=== PATIENT | male | born 1975 | race Caucasian/White ===

== ENCOUNTER 2016-07-11 08:12 | Day surgery (SDC) | payer OTHER ==
[~2016-07-11 08:12] MED LIST: Kenalog-40 IM ONE; Ketamine HCl 50 MG/ML IV ONE; Sensorcaine 0.25% 10 ML IJ ONE
[2016-07-11] MEDS ORDERED: Lactated Ringers 1,000 ML IV SCH (08:30)
[2016-07-11 08:54] VITALS: BP 145/93; PULSE 67; O2SAT 99
[2016-07-11] MEDS ORDERED: DIPRIVAN 200 MG/20 ML IV ONE (11:00)
--- NOTE | 2016-07-11 12:25 | XRAY ---
Indication: Right knee injection. Intraoperative fluoroscopy was provided for 25 seconds. A single digital spot lateral knee submitted for interpretation demonstrates what appears to be 3 anterior needle tips, 2 projecting over the distal femur shaft and the third anteriorly. Correlate with intraoperative findings/report.
--- NOTE | 2016-07-12 11:00 | XRAY ---
25 seconds fluoroscopy time in surgery for right knee injection.
== END 2016-07-11 11:10 | disposition home or self-care (01) ==
LOC: SDC-PAIN 08:12
PROVIDERS: ATTEND Pain Medicine Interventional Pain Medicine
DX: M25.561 Pain in right knee (principal); M25.562 Pain in left knee; M47.816 Spondylosis without myelopathy or radiculopathy, lumbar region
CPT/HCPCS: 64450; 73560; 76000; J2704; J3301

== ENCOUNTER 2016-09-05 08:20 | Day surgery (SDC) | payer OTHER ==
[2016-09-05] MEDS ORDERED: DIPRIVAN 200 MG/20 ML IV ONE (10:00)
--- NOTE | 2016-09-05 11:31 | XRAY ---
Indication: Right knee GNB. Intraoperative fluoroscopy was provided for 22 seconds. 2 lateral digital spot images submitted for interpretation demonstrates what appears to be 3 anterior needle tips, 2 projecting over the distal femur shaft and the third projecting over the proximal tibia. Correlate with intraoperative findings/report.
--- NOTE | 2016-09-05 13:18 | XRAY ---
22 seconds of fluoroscopy was used in surgery for a right GNB.
[2016-09-05] MEDS ORDERED: Sensorcaine 0.25% 10 ML IJ ONE (15:00)
[2016-09-05] MEDS ORDERED: Lactated Ringers IV ONE (15:00)
[2016-09-05] MEDS ORDERED: Kenalog-40 IM ONE (15:00)
== END 2016-09-05 10:40 | disposition home or self-care (01) ==
LOC: SDC-PAIN 08:20
PROVIDERS: ATTEND Pain Medicine Interventional Pain Medicine
DX: M25.561 Pain in right knee (principal); M25.562 Pain in left knee; M47.816 Spondylosis without myelopathy or radiculopathy, lumbar region; Z79.891 Long term (current) use of opiate analgesic
CPT/HCPCS: 01991; 64640; 73560; 76000; J2704; J3301

== ENCOUNTER 2017-10-02 08:01 | Day surgery (SDC) | payer OTHER ==
[2017-10-02] MEDS ORDERED: LIDOCAINE HCL 2% 100 MG/5 ML IJ ONE (08:02)
[2017-10-02] MEDS ORDERED: XYLOCAINE-MPF 1% 5ML SDV IJ ONE (08:02)
[2017-10-02] MEDS ORDERED: Marcaine 0.5% SDV 10 ML IJ ONE (08:02)
--- NOTE | 2017-10-02 11:07 | XRAY ---
Indication: Right knee GNB. Intraoperative fluoroscopy was provided for 22 seconds. 2 digital spot images submitted for interpretation demonstrates 2 anterior needle tips projecting over the distal medial and lateral femur shaft. Correlate with intraoperative findings/report.
--- NOTE | 2017-10-02 11:11 | XRAY ---
22 seconds fluoroscopy in surgery for incomplete knee injection.
--- NOTE | 2017-10-02 15:01 | OP ---
DATE OF PROCEDURE: 10/02/2017 0908 SURGEON: Jonathan Staley D.O. PREOPERATIVE DIAGNOSES: Degenerative knee disease, knee pain. POSTOPERATIVE DIAGNOSES: Degenerative knee disease, knee pain. PROCEDURE PERFORMED: Right genicular nerve block under fluoroscopic guidance. The patient preferred to have genicular nerve block done under local anesthetic agent. The patient cannot tolerate the procedure under local anesthetic agent after the second needle insertion, and the patient preferred to stop the procedure immediately and to be rescheduled for the right knee genicular nerve block under non-local anesthesia such as MAC in the future. No injection medications were given for the genicular nerve block today. The patient will be rescheduled for right genicular nerve block in the near future. No complications observed after today's procedure.
== END 2017-10-02 09:54 | disposition home or self-care (01) ==
LOC: SDC-PAIN 08:01
PROVIDERS: ATTEND Internal Medicine
DX: M25.561 Pain in right knee (principal); M54.5 Low back pain; Z79.891 Long term (current) use of opiate analgesic
CPT/HCPCS: 64450; 73560; 77003

== ENCOUNTER 2020-02-24 10:56 | Emergency (ER) | payer OTHER ==
[2020-02-24] MEDS ORDERED: Sodium Chloride 0.9% 1000 ML 1,000 ML IV STA (11:11)
[2020-02-24 11:24] LABS: Absolute Neutrophil Ct (ANC) 3.09 (1.4-6.9); BASOPHIL % 0.4 % (0.0-0.4); Basophil (Absolute #) 0.02 (0-0.4); Eosinophil % 1.3 % (0.00-5.0); Eosinophil (Absolute #) 0.07 (0-0.5); Hematocrit 51.9 % (42-50); Hemoglobin 18.2 gm/dl (12.5-18.0); Lymphocyte (Absolute #) 1.71 (1.0-4.6); Mean Cell Volume 88.6 fl (78-100); Mean Corpuscular Hemoglobin 31.1 pg (26-32); Mean Corpuscular Hgb Concent. 35.1 g/dl (32-36); Mean Platelet Volume 12.3 fl (7.5-11.0); Monocyte (Absolute #) 0.45 (0.0-1.3); Monocytes % 8.4 % (0.0-12.0); Neutrophil % 57.9 % (36.0-66.0); Platelet Count 198 K/mm3 (150-450); Red Blood Count 5.86 M/mm3 (4.1-5.6); Red Cell Distribution Width 14.4 % (11.5-14.0); White Blood Count 5.3 K/mm3 (4.0-10.5)
[2020-02-24] MEDS ORDERED: Sodium Chloride 0.9% 1000 ML 1,000 ML ONE (11:24)
[2020-02-24 11:31] LABS: INR 1.02 (0.8-3.0); PROTIME 11.5 SECONDS (8.83-12.87)
[2020-02-24 11:38] LABS: Appearance CLEAR (CLEAR); Bilirubin NEGATIVE (NEGATIVE); Blood NEGATIVE Ery/ul (0-5); Glucose NEGATIVE (NEGATIVE); Ketones NEGATIVE (NEGATIVE); Leukocyte Esterase NEGATIVE (NEGATIVE); Mucus SLIGHT /HPF (NEGATIVE); Nitrite NEGATIVE (NEGATIVE); Protein,Urine Dip NEGATIVE (Negative); Specific Gravity 1.004 (1.005-1.025); Urobilinogen NEGATIVE mg/dL (0-1)
[2020-02-24 11:50] LABS: Erythrocyte Sedimentation Rate 1 mm/hr (0-15)
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
[2020-02-24 12:05] LABS: ALBUMIN 4.7 g/dL (3.5-5.0); ALKALINE PHOSPHATASE 75 U/L (38-126); AMYLASE 74 U/L (30-110); ANION GAP 10.3 MEQ/L (5-15); BLOOD UREA NITROGEN 11 mg/dL (9-20); CHLORIDE 102 mmol/L (98-107); CK-Creatinine Phosphokinase 122 U/L (55-170); Calcium 9.5 mg/dL (8.4-10.2); Carbon Dioxide 29 mmol/L (22-30); Creatinine 1 0.99 mg/dL (0.66-1.25); EST GLOMERULAR FILTRATION RATE > 60.0 ML/MIN; Glucose 100 mg/dL (74-106); LIPASE 46 U/L (23-300); MAGNESIUM 2.2 mg/dL (1.6-2.3); NT PRO BNP 76.8 pg/mL (0-450); Potassium 4.4 mmol/L (3.5-5.1); SGOT/AST 81 U/L (17-59); SGPT/ALT 134 U/L (0-50); SODIUM 137 mmol/L (137-145); Total Protein 7.8 g/dL (6.3-8.2)
--- NOTE | 2020-02-24 12:57 | ERPHSYRPT ---
- History of Present Illness Time Seen by Provider: 02/24/20 11:05 Patient Subjective Stated Complaint: chest paint Triage Nursing Assessment: pt to ED c/o chest tightness onset [id number] this am. states he was pumping gas and felt "like I got shot right in the center of my chest, and tightness ever since." rates 2/10 pain, denies SOB, NV. no cardiac hx reported. cap refil < 3 sec, skin pink warm and dry, heart sounds clear, lung sounds clear and equal bilaterally. Physician History: 44-year-old male previously healthy who was bending over reaching into his truck to adjust his mileage meter to keep track of his feel usage and developed a sharp severe pain in the substernal area which lasted a few seconds afterwards he continued to feel tight with a mild cramp. He had no shortness of breath no nausea no vomiting no diarrhea and he feels normal at the time of exam. His risk factors are essentially negative other than some mild hypertension he does not smoke family history is negative cholesterol is good no diabetes. Timing/Duration: today Activities at Onset: activity Quality: sharpness, stabbing Location: substernal Chest Pain Radiation: no radiation Severity of Pain-Max: moderate Severity of Pain-Current: none Modifying Factors: Improves With: nothing Associated Symptoms: denies symptoms Prior Chest Pain/Cardiac Workup: no prior chest pain Nitro Today/Relief: no nitro taken today Aspirin Treatment Today: no aspirin today Allergies/Adverse Reactions: No Known Drug Allergies Allergy (Verified 02/24/20 11:12) Home Medications: Cetirizine HCl [Zyrtec] 10 mg PO DAILY 02/29/16 [History] Nebivolol HCl [Bystolic] 10 mg PO DAILY 02/24/20 [History] Hx Tetanus, Diphtheria Vaccination/Date Given: Yes Hx Influenza Vaccination/Date Given: No Hx Pneumococcal Vaccination/Date Given: No Immunizations Up to Date: Yes Travel Risk - International Travel Have you traveled outside of the country in past 3 weeks: No - Coronavirus Screening Are you exhibiting any of the following symptoms?: No Close contact with a COVID-19 positive Pt in past 14-21 Days: No - Review of Systems Constitutional: No Fever, No Chills Eyes: No Symptoms Ears, Nose, & Throat: No Symptoms Respiratory: No Cough, No Dyspnea Cardiac: Chest Pain, No Edema, No Syncope Abdominal/Gastrointestinal: No Abdominal Pain, No Nausea, No Vomiting, No Diarrhea Genitourinary Symptoms: No Dysuria Musculoskeletal: No Back Pain, No Neck Pain Skin: No Rash Neurological: No Dizziness, No Focal Weakness, No Sensory Changes Psychological: No Symptoms Endocrine: No Symptoms All Other Systems: Reviewed and Negative - Past Medical History Pertinent Past Medical History: Yes Neurological History: No Pertinent History ENT History: No Pertinent History Cardiac History: Hypertension Respiratory History: No Pertinent History Endocrine Medical History: No Pertinent History Musculoskeletal History: Osteoarthritis GI Medical History: No Pertinent History History: No Pertinent History Psycho-Social History: No Pertinent History Male Reproductive Disorders: No Pertinent History - Past Surgical History Past Surgical History: Yes Neuro Surgical History: No Pertinent History Cardiac: No Pertinent History Respiratory: No Pertinent History Gastrointestinal: No Pertinent History Genitourinary: No Pertinent History Musculoskeletal: Orthopedic Surgery Male Surgical History: No Pertinent History Other Surgical History: RIGHT SHOULDER. LEFT KNEE - Social History Smoking Status: Never smoker Exposure to second hand smoke: No Drug Use: none Patient Lives Alone: No - Nursing Vital Signs Nursing Vital Signs: Initial Vital Signs Temperature 97.5 F 02/24/20 10:59 Pulse Rate 65 02/24/20 10:59 Respiratory Rate 14 02/24/20 10:59 Blood Pressure 152/110 02/24/20 10:59 O2 Sat by Pulse Oximetry 97 02/24/20 10:59 Pain Scale Pain Intensity 2 - Physical Exam General Appearance: no apparent distress, alert Eye Exam: PERRL/EOMI, eyes nml inspection Ears, Nose, Throat Exam: normal ENT inspection, moist mucous membranes Neck Exam: normal inspection, non-tender, supple, full range of motion Respiratory Exam: normal breath sounds, lungs clear, No respiratory distress Cardiovascular Exam: regular rate/rhythm, normal heart sounds Gastrointestinal/Abdomen Exam: soft, No tenderness, No mass Back Exam: normal inspection, No CVA tenderness, No vertebral tenderness Extremity Exam: normal inspection, normal range of motion Neurologic Exam: alert, oriented x 3, cooperative, normal mood/affect, sensation nml, No motor deficits Skin Exam: normal color, warm, dry SpO2: 98 - Course Nursing assessment & vital signs reviewed: Yes EKG Interpreted by Me: RATE (64), Sinus Rhythm, NORMAL AXIS, NORMAL INTERVALS, NORMAL QRS, NORMAL ST-T - Radiology Exams Chest X-ray Interpretation: Reviewed by me, Negative Ordered Tests: Active Orders 24 hr Category Date Time Status [employer] STAT Care 02/24/20 11:11 Active EKG-ER Only STAT Care 02/24/20 11:11 Active IV Insertion STAT Care 02/24/20 11:11 Active CHEST 1 VIEW (PORTABLE) Stat Exams 02/24/20 11:11 Completed AMYLASE Stat Lab 02/24/20 11:11 Completed CBC W DIFF Stat Lab 02/24/20 11:11 Completed CK-Creatinine Phosphokinase Stat Lab 02/24/20 11:11 Completed CMP Stat Lab 02/24/20 11:11 Completed D-DIMER QUANTITATIVE Stat Lab 02/24/20 11:11 Completed Erythrocyte Sedimentation Rate Stat Lab 02/24/20 11:11 Completed LIPASE Stat Lab 02/24/20 11:11 Completed Lactic Acid Stat Lab 02/24/20 11:11 Completed MAGNESIUM Stat Lab 02/24/20 11:11 Completed NT PRO BNP Stat Lab 02/24/20 11:11 Completed PROTIME WITH INR Stat Lab 02/24/20 11:11 Completed TROPONIN Q3H Lab 02/24/20 11:15 Completed TROPONIN Q3H Lab 02/24/20 14:15 Ordered TROPONIN Q3H Lab 02/24/20 17:15 Ordered TROPONIN Q3H Lab 02/24/20 20:15 Ordered TROPONIN Q3H Lab 02/24/20 23:15 Ordered UA W/RFX UR CULTURE Stat Lab 02/24/20 11:28 Completed Medication Summary Discontinued Medications Generic Name Dose Route Start Last Admin Trade Name Freq PRN Reason Stop Dose Admin Sodium Chloride 1,000 mls @ 999 mls/hr 02/24/20 11:11 02/24/20 12:31 Sodium Chloride 0.9% 1000 Ml IV 02/24/20 12:11 Infused .Q1H1M STA Infusion Sodium Chloride Confirm 02/24/20 11:24 Sodium Chloride 0.9% 1000 Ml Administered 02/24/20 11:25 Dose 1,000 mls @ ud .ROUTE .STK-MED ONE Lab/Rad Data: Laboratory Result Diagrams 02/24/20 11:11 02/24/20 11:11 Laboratory Results 02/24/20 02/24/20 02/24/20 Range/Units 11:28 11:15 11:11 WBC (4.0-10.5) K/mm3 RBC (4.1-5.6) M/mm3 Hgb (12.5-18.0) gm/dl Hct (42-50) % MCV (78-100) fl MCH (26-32) pg MCHC (32-36) g/dl RDW (11.5-14.0) % Plt Count (150-450) K/mm3 MPV (7.5-11.0) fl Gran % (36.0-66.0) % Eos # (Auto) (0-0.5) Absolute Lymphs (auto) (1.0-4.6) Absolute Monos (auto) (0.0-1.3) Lymphocytes % (24.0-44.0) % Monocytes % (0.0-12.0) % Eosinophils % (0.00-5.0) % Basophils % (0.0-0.4) % Absolute Granulocytes (1.4-6.9) Basophils # (0-0.4) ESR (0-15) mm/hr PT 11.5 (8.83-12.87) SECONDS INR 1.02 (0.8-3.0) D-Dimer 251 (215-500) ng/mL Sodium (137-145) mmol/L Potassium (3.5-5.1) mmol/L Chloride (98-107) mmol/L Carbon Dioxide (22-30) mmol/L Anion Gap (5-15) MEQ/L BUN (9-20) mg/dL Creatinine (0.66-1.25) mg/dL Estimated GFR ML/MIN Glucose (74-106) mg/dL Lactic Acid (0.4-2.0) Calcium (8.4-10.2) mg/dL Magnesium (1.6-2.3) mg/dL Total Bilirubin (0.2-1.3) mg/dL AST (17-59) U/L ALT (0-50) U/L Alkaline Phosphatase (38-126) U/L Creatine Kinase (55-170) U/L Troponin I < 0.012 (0.000-0.034) ng/mL NT-Pro-B Natriuret Pep (0-450) pg/mL Serum Total Protein (6.3-8.2) g/dL Albumin (3.5-5.0) g/dL Amylase (30-110) U/L Lipase (23-300) U/L Urine Color STRAW (YELLOW) Urine Appearance CLEAR (CLEAR) Urine pH 6.0 (5-6) Ur Specific [place] 1.004 (1.005-1.025) Urine Protein NEGATIVE (Negative) Urine Ketones NEGATIVE (NEGATIVE) Urine Blood NEGATIVE (0-5) Krunal/ul Urine Nitrite NEGATIVE (NEGATIVE) Urine Bilirubin NEGATIVE (NEGATIVE) Urine Urobilinogen NEGATIVE (0-1) mg/dL Ur Leukocyte Esterase NEGATIVE (NEGATIVE) Urine WBC (Auto) NONE (0-5) /HPF Urine RBC (Auto) NONE (0-2) /HPF U Epithel Cells (Auto) NONE (FEW) /HPF Urine Bacteria (Auto) NONE (NEGATIVE) /HPF Urine Mucus (Auto) SLIGHT (NEGATIVE) /HPF Urine Culture Reflexed NO (NO) Urine Glucose NEGATIVE (NEGATIVE) mg/dL 02/24/20 02/24/20 02/24/20 Range/Units 11:11 11:11 11:11 WBC 5.3 (4.0-10.5) K/mm3 RBC 5.86 H (4.1-5.6) M/mm3 Hgb 18.2 H (12.5-18.0) gm/dl Hct 51.9 H (42-50) % MCV 88.6 (78-100) fl MCH 31.1 (26-32) pg MCHC 35.1 (32-36) g/dl RDW 14.4 H (11.5-14.0) % Plt Count 198 (150-450) K/mm3 MPV 12.3 H (7.5-11.0) fl Gran % 57.9 (36.0-66.0) % Eos # (Auto) 0.07 (0-0.5) Absolute Lymphs (auto) 1.71 (1.0-4.6) Absolute Monos (auto) 0.45 (0.0-1.3) Lymphocytes % 32.0 (24.0-44.0) % Monocytes % 8.4 (0.0-12.0) % Eosinophils % 1.3 (0.00-5.0) % Basophils % 0.4 (0.0-0.4) % Absolute Granulocytes 3.09 (1.4-6.9) Basophils # 0.02 (0-0.4) ESR 1 (0-15) mm/hr PT (8.83-12.87) SECONDS INR (0.8-3.0) D-Dimer (215-500) ng/mL Sodium 137 (137-145) mmol/L Potassium 4.4 (3.5-5.1) mmol/L Chloride 102 (98-107) mmol/L Carbon Dioxide 29 (22-30) mmol/L Anion Gap 10.3 (5-15) MEQ/L BUN 11 (9-20) mg/dL Creatinine 0.99 (0.66-1.25) mg/dL Estimated GFR > 60.0 ML/MIN Glucose 100 (74-106) mg/dL Lactic Acid 0.7 (0.4-2.0) Calcium 9.5 (8.4-10.2) mg/dL Magnesium 2.2 (1.6-2.3) mg/dL Total Bilirubin 0.80 (0.2-1.3) mg/dL AST 81 H (17-59) U/L ALT 134 H (0-50) U/L Alkaline Phosphatase 75 (38-126) U/L Creatine Kinase 122 (55-170) U/L Troponin I (0.000-0.034) ng/mL NT-Pro-B Natriuret Pep 76.8 (0-450) pg/mL Serum Total Protein 7.8 (6.3-8.2) g/dL Albumin 4.7 (3.5-5.0) g/dL Amylase 74 (30-110) U/L Lipase 46 (23-300) U/L Urine Color (YELLOW) Urine Appearance (CLEAR) Urine pH (5-6) Ur Specific [place] (1.005-1.025) Urine Protein (Negative) Urine Ketones (NEGATIVE) Urine Blood (0-5) Krunal/ul Urine Nitrite (NEGATIVE) Urine Bilirubin (NEGATIVE) Urine Urobilinogen (0-1) mg/dL Ur Leukocyte Esterase (NEGATIVE) Urine WBC (Auto) (0-5) /HPF Urine RBC (Auto) (0-2) /HPF U Epithel Cells (Auto) (FEW) /HPF Urine Bacteria (Auto) (NEGATIVE) /HPF Urine Mucus (Auto) (NEGATIVE) /HPF Urine Culture Reflexed (NO) Urine Glucose (NEGATIVE) mg/dL - Progress Progress: improved Air Movement: good Blood Culture(s) Obtained: No Antibiotics given: No - Departure Departure Disposition: Home Clinical Impression: Chest pain Condition: Stable Critical Care Time: No Referrals: NERIS YUN [Primary Care Provider] - Instructions: Chest Pain (DC)
[2020-02-24 13:03] VITALS: BP 138/99; PULSE 58; O2SAT 98
== END 2020-02-24 13:05 | disposition home or self-care (01) ==
LOC: ED 10:56
DX: R07.9 Chest pain, unspecified (principal)
CPT/HCPCS: 36000; 36415; 71045; 80053; 81001; 82150; 82550; 83605; 83690; 83735; 83880; 84484; 85025; 85379; 85610; 85652; 93005; 93041; 96360; 99284

== ENCOUNTER 2021-01-29 04:05 | Emergency (ER) | payer OTHER ==
[2021-01-29 04:43] VITALS: BP 140/107; PULSE 88; O2SAT 98
--- NOTE | 2021-01-29 04:53 | ERPHSYRPT ---
- History of Present Illness Time Seen by Provider: 01/29/21 04:44 Source: patient, police Exam Limitations: no limitations Physician History: pt was brought in by police for medical clearance per police protocol as required. He reports that he was pulled over by police for a traffic stop and determined by them to be a suspected DUI and is being cleared for their custody. He denies any injuries, SI or HI or any ingestions . No traumas or altercations reported by either him or police. Exam is without neuro deficit, no signs of trauma, full ROM all ext, chest and adb soft nontender. chest clear ht without M. fundi benign, spine nontender head nontender. Timing/Duration: today Associated Symptoms: denies symptoms Allergies/Adverse Reactions: No Known Drug Allergies Allergy (Verified 01/29/21 04:43) Home Medications: Cetirizine HCl [Zyrtec] 10 mg PO DAILY 02/29/16 [History] Nebivolol HCl [Bystolic] 10 mg PO DAILY 02/24/20 [History] Hx Tetanus, Diphtheria Vaccination/Date Given: Yes Hx Influenza Vaccination/Date Given: No Hx Pneumococcal Vaccination/Date Given: No - Review of Systems Constitutional: No Fever, No Chills Eyes: No Symptoms Ears, Nose, & Throat: No Symptoms Respiratory: No Symptoms, No Cough, No Dyspnea Cardiac: No Symptoms, No Chest Pain, No Edema, No Syncope Abdominal/Gastrointestinal: No Symptoms, No Abdominal Pain, No Nausea, No Vomiting, No Diarrhea Genitourinary Symptoms: No Symptoms, No Dysuria Musculoskeletal: No Symptoms, No Back Pain, No Neck Pain Skin: No Symptoms, No Rash Neurological: No Symptoms, No Dizziness, No Focal Weakness, No Headache, No Seizure, No Sensory Changes Psychological: No Symptoms, No Depression, No Suicidal Ideations, No Homicidal Ideations, No Emotional Lability Endocrine: No Symptoms Hematologic/Lymphatic: No Symptoms Immunological/Allergic: No Symptoms All Other Systems: Reviewed and Negative - Past Medical History Pertinent Past Medical History: Yes Neurological History: No Pertinent History ENT History: No Pertinent History Cardiac History: Hypertension Respiratory History: No Pertinent History Endocrine Medical History: No Pertinent History Musculoskeletal History: Osteoarthritis GI Medical History: No Pertinent History History: No Pertinent History Psycho-Social History: No Pertinent History Male Reproductive Disorders: No Pertinent History - Past Surgical History Past Surgical History: Yes Neuro Surgical History: No Pertinent History Cardiac: No Pertinent History Respiratory: No Pertinent History Gastrointestinal: No Pertinent History Genitourinary: No Pertinent History Musculoskeletal: Orthopedic Surgery Male Surgical History: No Pertinent History Other Surgical History: RIGHT SHOULDER. LEFT KNEE - Social History Smoking Status: Never smoker Exposure to second hand smoke: No Drug Use: none Patient Lives Alone: No - Nursing Vital Signs Nursing Vital Signs: Initial Vital Signs Temperature 97.9 F 01/29/21 04:41 Pulse Rate 88 01/29/21 04:41 Respiratory Rate 20 01/29/21 04:41 Blood Pressure 140/107 01/29/21 04:41 O2 Sat by Pulse Oximetry 98 01/29/21 04:41 Pain Scale Pain Intensity 0 - Physical Exam General Appearance: no apparent distress, alert Eye Exam: PERRL/EOMI, eyes nml inspection Ears, Nose, Throat Exam: normal ENT inspection, TMs normal, pharynx normal, moist mucous membranes Neck Exam: normal inspection, non-tender, supple, full range of motion Respiratory Exam: normal breath sounds, lungs clear, No respiratory distress Cardiovascular Exam: regular rate/rhythm, normal heart sounds, normal peripheral pulses Gastrointestinal/Abdomen Exam: soft, normal bowel sounds, No tenderness, No mass Back Exam: normal inspection, normal range of motion, No CVA tenderness, No vertebral tenderness Extremity Exam: normal inspection, normal range of motion, pelvis stable Neurologic Exam: alert, oriented x 3, cooperative, normal mood/affect, nml cerebellar function, nml station & gait, sensation nml, No motor deficits Skin Exam: normal color, warm, dry, No rash Lymphatic Exam: No adenopathy SpO2: 98 - Course Nursing assessment & vital signs reviewed: Yes - Progress Progress: unchanged Progress Note: 01/29/21 04:54 pt reports chronic knee and back problems without change tonight and following with PMDs Counseled pt/family regarding: diagnosis, need for follow-up - Departure Departure Disposition: Group Home/Senior Care Clinical Impression: Medical clearance for incarceration Condition: Good Critical Care Time: No Additional Instructions: followup with your DrBrigitte for the chronic knee and back concerns and for blood pressure. return meantime if anyu symptoms or concerns. talk to your DrBrigitte about alcohol use.
== END 2021-01-29 05:00 | disposition home or self-care (01) ==
LOC: ED 04:05
DX: Z02.89 Encounter for other administrative examinations (principal)
CPT/HCPCS: 99282

== ENCOUNTER 2022-12-20 08:22 | Emergency (ER) | payer OTHER ==
[2022-12-20] MEDS ORDERED: Adacel Vial IM ONE ×2 (08:43→08:44)
--- NOTE | 2022-12-20 08:56 | ERPHSYRPT ---
- History of Present Illness Time Seen by Provider: 12/20/22 09:01 Exam Limitations: no limitations Patient Subjective Stated Complaint: Laceration Triage Nursing Assessment: Patient ambulated back to ED and transferred self to bed. Patient A+O X 3. Patient's skin pink, warm and dry. Patient complains of laceartion to right side of head. Patient states he going down into a basement and he hit his head on a metal pipe causing a laceration. Patient denies losing consiousness. Patient denies N/V or headache. Patient has laceration 4cm to right side of head. Patient complains of pain to laceration site 08/24. Physician History: Patient is a 47-year-old male presents to our ED for evaluation and treatment of a scalp laceration. Patient states he was at work. Patient was descending stairs into her basement and hit his head on a low hanging pipe in the ceiling of the basement. Injury occurred just prior to arrival. No loss of consciousness. No neck pain. Cervical spine cleared clinically. No active bleeding. Patient laceration measures 4 cm. Tetanus is not up-to-date. Patient voices no other complaints or concerns at this time. Portions of this note were created with voice recognition technology. There may be grammatical, spelling, punctuation or sound alike errors Timing/Duration: today Severity: moderate Modifying Factors: Improves With: nothing Associated Symptoms: denies symptoms Allergies/Adverse Reactions: No Known Drug Allergies Allergy (Verified 12/20/22 08:27) Home Medications: Cetirizine HCl [Zyrtec] 10 mg PO DAILY 02/29/16 [History] Nebivolol HCl [Bystolic] 10 mg PO DAILY 02/24/20 [History] Hx Tetanus, Diphtheria Vaccination/Date Given: No (unsure) Hx Influenza Vaccination/Date Given: No Hx Pneumococcal Vaccination/Date Given: No Immunizations Up to Date: Yes Travel Risk - International Travel Have you traveled outside of the country in past 3 weeks: No - Coronavirus Screening Are you exhibiting any of the following symptoms?: No Close contact with a COVID-19 positive Pt in past 14-21 Days: No - Vaccine Status Have you recieved a Covid-19 vaccination: No - Review of Systems Constitutional: No Symptoms, No Fever, No Chills Eyes: No Symptoms Ears, Nose, & Throat: No Symptoms Respiratory: No Symptoms, No Cough, No Dyspnea Cardiac: No Symptoms, No Chest Pain, No Edema, No Syncope Abdominal/Gastrointestinal: No Symptoms, No Abdominal Pain, No Nausea, No Vomiting, No Diarrhea Genitourinary Symptoms: No Symptoms, No Dysuria Musculoskeletal: No Symptoms, No Back Pain, No Neck Pain Skin: No Symptoms, No Rash Neurological: No Symptoms, No Dizziness, No Focal Weakness, No Sensory Changes Psychological: No Symptoms Endocrine: No Symptoms Hematologic/Lymphatic: No Symptoms Immunological/Allergic: No Symptoms All Other Systems: Reviewed and Negative - Past Medical History Pertinent Past Medical History: Yes Neurological History: No Pertinent History ENT History: No Pertinent History Cardiac History: Hypertension Respiratory History: No Pertinent History Endocrine Medical History: No Pertinent History Musculoskeletal History: Osteoarthritis GI Medical History: No Pertinent History History: No Pertinent History Psycho-Social History: No Pertinent History Male Reproductive Disorders: No Pertinent History - Past Surgical History Past Surgical History: Yes Neuro Surgical History: No Pertinent History Cardiac: No Pertinent History Respiratory: No Pertinent History Gastrointestinal: No Pertinent History Genitourinary: No Pertinent History Musculoskeletal: Orthopedic Surgery Male Surgical History: No Pertinent History Other Surgical History: RIGHT SHOULDER. LEFT KNEE - Social History Smoking Status: Never smoker Exposure to second hand smoke: No Drug Use: none Patient Lives Alone: No - Nursing Vital Signs Nursing Vital Signs: Initial Vital Signs Temperature 97.1 F 12/20/22 08:27 Pulse Rate 72 12/20/22 08:27 Respiratory Rate 18 12/20/22 08:27 Blood Pressure 160/118 12/20/22 08:27 O2 Sat by Pulse Oximetry 98 12/20/22 08:27 Pain Scale Pain Intensity 0 - Physical Exam General Appearance: no apparent distress, alert Eye Exam: PERRL/EOMI, eyes nml inspection Ears, Nose, Throat Exam: normal ENT inspection, moist mucous membranes Neck Exam: normal inspection, full range of motion Respiratory Exam: normal breath sounds, airway intact, No respiratory distress Cardiovascular Exam: regular rate/rhythm Gastrointestinal/Abdomen Exam: soft, mass, No tenderness Back Exam: normal inspection, normal range of motion, No CVA tenderness, No vertebral tenderness Extremity Exam: normal inspection, normal range of motion, pelvis stable Neurologic Exam: alert, oriented x 3, cooperative, normal mood/affect, nml cerebellar function, nml station & gait, sensation nml, No motor deficits Skin Exam: normal color, warm, dry, No rash Lymphatic Exam: No adenopathy SpO2 Interpretation: normal SpO2: 98 O2 Delivery: Room Air Procedures - Laceration/Wound Repair Parietal Time of Procedure: 09:04 Wound Location: head Wound Length (cm): 4 Wound's Depth, Shape: superficial Wound Explored: clean Irrigated: Yes Hibiclens Prep: Yes Wound Debrided: No debridement indicated Wound Repaired With: [place] Number of Sutures: 5 Layer Closure?: No Sterile Dressing Applied?: Yes Splint Applied?: No Sling Applied?: No Progress: Patient tolerated procedure well. No intra or postprocedural complications. 12/20/22 09:05 - Course Nursing assessment & vital signs reviewed: Yes Ordered Tests: Medication Summary Discontinued Medications Generic Name Dose Route Start Last Admin Trade Name Skip PRN Reason Stop Dose Admin Diphtheria/Tetanus/Acell Pertussis 0.5 ml 12/20/22 08:43 12/20/22 08:52 Tdap --Diph,Pertuss(Acell),Tet Vac/Pf 0.5 Ml Vial IM 12/20/22 08:44 0.5 ml .ONCE ONE Administration Diphtheria/Tetanus/Acell Pertussis Confirm 12/20/22 08:44 Tdap --Diph,Pertuss(Acell),Tet Vac/Pf 0.5 Ml Vial Administered 12/20/22 08:45 Dose 0.5 ml IM .ST-MED ONE - Progress Progress: improved Progress Note: Patient is a 47-year-old male presents to our ED for evaluation of a scalp laceration. Injury occurred just prior to arrival. Physical exam reveals a 4 cm laceration no active bleeding. No other injuries otherwise. The laceration was irrigated in our ED. Patient received 5 sarthak to close the wound. No complications. Patient tolerated procedure well. Patient declined pain medication. Tetanus was updated. Patient voices no other complaints or concerns at this time. Blood pressure slightly elevated. Patient is asymptomatic. Patient will follow-up with his primary care doctor within 48 hours for recheck of his wound and vitals. [place] are to be removed in 1 week' s time. Patient voices no other complaints or concerns at this time. Portions of this note were created with voice recognition technology. There may be grammatical, spelling, punctuation or sound alike errors Complexity of problem addressed is low acute uncomplicated No critical care time Complexity of data reviewed and analyzed is none. No specialized testing ordered. Diagnosis made based on history and physical examination. Risk of complication and or risk morbidity/mortality patient management is low. Patient received sarthak. Tetanus updated. No other intervention rendered. Patient declined pain medication. Patient will be discharged home. Patient agrees to follow-up with his primary care doctor within 48 hours to reassess wound and blood pressure. Vitals otherwise stable. Time spent to discharge patient approximately 10 minutes. Plan of care established via shared decision making. No social determinants of health present to impede follow-up. Patient voices no other complaints or concerns at this time. Portions of this note were created with voice recognition technology. There may be grammatical, spelling, punctuation or sound alike errors 12/20/22 09:05 Counseled pt/family regarding: diagnosis, need for follow-up - Departure Departure Disposition: Home Clinical Impression: Scalp laceration Condition: Stable Critical Care Time: No Referrals: NERIS YUN [Primary Care Provider] - Follow up/PCP as directed Additional Instructions: Sarthak are to be removed in 1 week Discharge/Care Plan JENJAMAAL JOHNSON was seen on 12/20/22 in the Emergency Room. The patient was counseled regarding Diagnosis,Lab results, Imaging studies, need for follow up and when to return to the Emergency Room. Prescriptions given: Discharge Note I have spoken with the patient and/or caregivers. I have explained the patient's condition, diagnosis and treatment plan based on the information available to me at this time. I have answered the patient's and/or caregiver's questions and addressed any concerns. The patient and/or caregivers have as good understanding of the patient's diagnosis, condition and treatment plan as can be expected at this point. The vital signs have been stable. The patient's condition is stable and appropriate for discharge from the emergency department. The patient will pursue further outpatient evaluation with the primary care physician or other designated or consulting physician as outlined in the discharge instructions. The patient and/or caregivers are agreeable to this plan of care and follow-up instructions have been explained in detail. The patient and/or caregivers have received these instruction. The patient/and or caregivers are aware that any significant change in condition or worsening of symptoms should prompt an immediate return to this or the closest emergency department or call 911.
[2022-12-20 09:03] VITALS: BP 168/115; PULSE 80
[2022-12-20 09:12] VITALS: O2SAT 98
== END 2022-12-20 09:05 | disposition home or self-care (01) ==
LOC: ED 08:22
DX: S01.01XA Laceration without foreign body of scalp, initial encounter (principal); W22.09XA Striking against other stationary object, initial encounter; Y99.0 Civilian activity done for income or pay; I10 Essential (primary) hypertension; Z79.899 Other long term (current) drug therapy; Z28.310 Unvaccinated for COVID-19
CPT/HCPCS: 12002; 90471; 90715; 99283

== ENCOUNTER 2023-03-31 16:41 | Emergency (ER) | payer OTHER ==
[2023-03-31 17:01] VITALS: BP 154/96; PULSE 70; TEMP 96.4
--- NOTE | 2023-03-31 17:05 | ERPHSYRPT ---
- History of Present Illness Time Seen by Provider: 03/31/23 16:59 Source: patient Exam Limitations: no limitations Physician History: Patient is a 47-year-old male who on Saturday had a meniscus tear repair at [facility]. He presents now because of increased pain and swelling over the past 48 hours. He has large amount of effusion in the supra patellar area and severe pain in the popliteal fossa. He feels he was doing well until Saturday when he took off the dressing to clean the area. His surgeon was Dr. Salmon.Patient is obviously concerned about infection or thrombosis. Method of Injury: unknown Occurred: days ago (5) Quality: aching Severity of Pain-Max: severe Severity of Pain-Current: moderate Lower Extremities Pain: knee: right Modifying Factors: Improves With: movement Associated Symptoms: unable to bear weight Allergies/Adverse Reactions: No Known Drug Allergies Allergy (Verified 03/31/23 17:01) Home Medications: Nebivolol HCl [Bystolic] 10 mg PO DAILY 02/24/20 [History] Dextroamphetamine/Amphetamine [Adderall 10 mg Tablet] 10 mg PO DAILY 03/31/23 [History] Fexofenadine HCl 180 mg PO DAILY 03/31/23 [History] Hx Tetanus, Diphtheria Vaccination/Date Given: No (unsure) Hx Influenza Vaccination/Date Given: No Hx Pneumococcal Vaccination/Date Given: No Travel Risk - Vaccine Status Have you recieved a Covid-19 vaccination: No - Review of Systems Constitutional: No Fever, No Chills Eyes: No Symptoms Ears, Nose, & Throat: No Symptoms Respiratory: No Cough, No Dyspnea Cardiac: No Chest Pain, No Edema, No Syncope Abdominal/Gastrointestinal: No Abdominal Pain, No Nausea, No Vomiting, No Diarrhea Genitourinary Symptoms: No Dysuria Musculoskeletal: Joint Pain, Joint Swelling, No Back Pain, No Neck Pain Skin: No Rash Neurological: No Dizziness, No Focal Weakness, No Sensory Changes Psychological: No Symptoms Endocrine: No Symptoms All Other Systems: Reviewed and Negative - Past Medical History Pertinent Past Medical History: Yes Neurological History: No Pertinent History ENT History: No Pertinent History Cardiac History: Hypertension Respiratory History: No Pertinent History Endocrine Medical History: No Pertinent History Musculoskeletal History: Osteoarthritis GI Medical History: No Pertinent History History: No Pertinent History Psycho-Social History: No Pertinent History Male Reproductive Disorders: No Pertinent History - Past Surgical History Past Surgical History: Yes Neuro Surgical History: No Pertinent History Cardiac: No Pertinent History Respiratory: No Pertinent History Gastrointestinal: No Pertinent History Genitourinary: No Pertinent History Musculoskeletal: Orthopedic Surgery Male Surgical History: No Pertinent History Other Surgical History: RIGHT SHOULDER. LEFT KNEE - Social History Smoking Status: Never smoker Exposure to second hand smoke: No Drug Use: none Patient Lives Alone: No - Nursing Vital Signs Nursing Vital Signs: Initial Vital Signs Temperature 96.4 F 03/31/23 16:49 Pulse Rate 70 03/31/23 16:49 Blood Pressure 154/96 03/31/23 16:49 O2 Sat by Pulse Oximetry 99 03/31/23 16:49 Pain Scale Pain Intensity 9 - Physical Exam General Appearance: mild distress, alert Eyes, Ears, Nose, Throat Exam: moist mucous membranes Neck Exam: non-tender, supple Cardiovascular/Respiratory Exam: chest non-tender, normal breath sounds, regular rate/rhythm, no respiratory distress Gastrointestinal/Abdominal Exam: non-tender, guarding Back Exam: normal inspection, No vertebral tenderness Hips Exam: bilateral: non-tender, normal inspection, normal range of motion Legs Exam: bilateral leg: non-tender, normal inspection, normal range of motion Knees Exam: right knee: bone tenderness, joint effusion, pain, soft tissue tenderness, swelling Ankle Exam: bilateral ankle: non-tender, normal inspection, normal range of motion Foot Exam: bilateral foot: non-tender, normal inspection, normal range of motion Neuro/Tendon Exam: normal sensation, normal motor functions Mental Status Exam: alert, oriented x 3, cooperative Skin Exam: normal color, warm, dry SpO2 Interpretation: normal SpO2: 96 O2 Delivery: Room Air - Radiology Exams Right Knee X-ray Interpretation: Interpreted by me, Negative (Negative for bony injury or dislocation there is soft tissue swelling and obvious effusion present.) Ordered Tests: Active Orders 24 hr Category Date Time Status KNEE (3 VIEWS) Stat Exams 03/31/23 17:13 Taken VENOUS UNILAT/LIMITED EXTREMIT [US] Stat Exams 03/31/23 18:17 Taken Medication Summary Discontinued Medications Generic Name Dose Route Start Last Admin Trade Name Freq PRN Reason Stop Dose Admin Hydromorphone HCl 1 mg 03/31/23 17:10 03/31/23 17:16 Hydromorphone 1 Mg/1ml Inj IM 03/31/23 17:11 1 mg STAT ONE Administration Hydromorphone HCl Confirm 03/31/23 17:13 Hydromorphone 1 Mg/1ml Inj Administered 03/31/23 17:14 Dose 1 mg .ROUTE .STK-MED ONE - Progress Progress Note: 03/31/23 18:[address] Toney is 6 oral third surgeon who will see him at 8 to 8:30 in the morning Medical Desision Making - Independent Historian Additional History obtained from: Spouse - Discussion of managment Care discussed with:: specialist (Dr Toney) Reviewed:: Test results Agreed on:: need for follow-up Will see patient: In office - Diagnostic Testing Radiological Interpretation: Interpreted by me - Risk of complications Low Risk: Low risk of morbidity from additional dx testing or treatment - Departure Departure Disposition: Home Clinical Impression: Effusion, right knee Condition: Stable Critical Care Time: No Referrals: NERIS YUN [Primary Care Provider] - Follow up/PCP as directed Instructions: Knee Pain (DC)
[2023-03-31 17:08] VITALS: O2SAT 96
[2023-03-31] MEDS ORDERED: Hydromorphone 1 mg/ml Injection IM ONE ×2 (17:10→18:58)
[2023-03-31] MEDS ORDERED: Hydromorphone 1 mg/ml Injection ONE ×2 (17:13→19:01)
--- NOTE | 2023-03-31 20:04 | XRAY ---
Indication: Postop pain and swelling. Comparison: None 3 view right knee demonstrates small effusion and tiny air bubble posterior knee presumed postoperative. Small inferior patella spurring. No other bony, articular, or soft tissue abnormalities.
--- NOTE | 2023-03-31 20:04 | XRAY ---
Indication: Postop pain and swelling. Two-dimensional sonogram and color Doppler imaging of the major venous vessels of the right leg performed. Comparison: None No thrombus seen in the examined deep venous vessels of the right leg including greater saphenous vein. Veins demonstrate normal compressibility. Venous waveforms are normal with and without augmentation. Impression: Right leg negative for DVT. Comment: Preliminary report was given.
== END 2023-03-31 19:05 | disposition home or self-care (01) ==
LOC: ED 16:41
DX: M25.461 Effusion, right knee (principal); M25.561 Pain in right knee; I10 Essential (primary) hypertension; Z79.899 Other long term (current) drug therapy; Z28.310 Unvaccinated for COVID-19
CPT/HCPCS: 73562; 93971; 96372; 99283; J1170; L1830